=== PATIENT | male | born 1980 | race Caucasian/White ===

== ENCOUNTER 2017-02-06 08:32 | Emergency (ER) | payer SELFPAY ==
[~2017-02-06] VITALS: Ht 177.8 cm; Wt 71.2 kg
[~2017-02-06 08:32] MED LIST: FLEXERIL10 MG PO; IBUPROFEN800 MG PO; KEFLEX500 MG PO; MOTRIN600 MG PO; NAPROSYN500 MG PO; NORCO 5/3251 TABLET PO; PEN-VEE K,VEET500 MG PO; PERCOCET 5/31 TABLET PO; SKELAXIN800 MG PO; TRAMADOL HCL50 MG PO; ULTRAM50 MG PO
[2017-02-06 08:35] VITALS: BP 161/96
[2017-02-07] MEDS ORDERED: PREDNISONE10 MG PO (11:27)
[2017-02-07] MEDS ORDERED: VALIUM5 MG PO (11:27)
== END 2017-02-06 10:56 | disposition left against medical advice (07) ==
LOC: EME 08:32
DX: M54.9 Dorsalgia, unspecified (principal); Z53.21 Procedure and treatment not carried out due to patient leaving prior to being seen by health care provider

== ENCOUNTER 2017-02-07 08:46 | Emergency (ER) | payer OTHER ==
[~2017-02-07] VITALS: Ht 177.8 cm; Wt 70.6 kg
[2017-02-07] MEDS ORDERED: PREDNISONE10 MG PO (11:27)
[2017-02-07] MEDS ORDERED: VALIUM5 MG PO (11:27)
[2017-02-07 11:54] VITALS: BP 146/98
== END 2017-02-07 11:55 | disposition home or self-care (01) ==
LOC: EXP 08:46 → EME 08:46 → EXP 11:55
DX: M54.5 Low back pain (principal); M62.830 Muscle spasm of back; M79.605 Pain in left leg
CPT/HCPCS: 80048; 81003; 84484; 85027; 85610; 85730; 99281; 99284; J1885